=== PATIENT | female | born 1940 | race Caucasian/White ===

== ENCOUNTER 2017-04-10 07:50 | Day surgery (SDC) | payer MEDICARE, BC ==
--- NOTE | 2017-04-10 06:16 | PCM.HP ---
H&P History of Present Illness - General Date of Service: 04/10/17 Admit Problem/Dx: dysphagia, reflux, heartburn, nausea, lower abdominal pain, right throat pain, epigastric pain, upper abdominal pain, bloating, hx of constipation, possible post cholecystectomy diarrhea Source of Information: Patient History Limitations: Reports: No Limitations - History of Present Illness Initial Comments - Free Text/Narative: The patient is a 76-year-old female referred by Dr. Mosher for dysphagia. Patient is known to the clinic Dr. Briones previously completed colonoscopy and cholecystectomy with primary repair of umbilical hernia in 2012. The patient presents today for the above noted concern. Last evaluated 12/19/16 and 03/04/17. She denies any changes to health history since her 03/04 visit. She reports she still has the episodes of upper abdominal tightness, randomly. She will have the tightness accompanied by dizziness, feeling warm and generally feeling unwell. She last had this last week. She cannot identify a cause. She has not had the CT of abdomen as recommended. She is waiting on a pulmonology visit. She did stop eating gravy and butter and this has helped with diarrhea and indigestion. She took a car ride last week. Has some ankle swelling, no pain. Did stop frequently and did foot pumps on ride. She did not wear compression stockings. She still has trouble swallowing. No longer has the neck pain after PT. Constipation controlled with stool softener and Miralax. Previously reported she Has tightness to upper abdomen. Cardiology did not feel this was cardiac, per patient. Previously when she ate butter she will have the upper abdominal, it is a band like pain. Reports she will have diaphoresis with the pain at time. When she eats fatty foods can occur, or randomly occur. She has no gallbladder. - Related Data Allergies/Adverse Reactions: Allergies Allergy/AdvReac Type Severity Reaction Status Date / Time hydromorphone HCl Allergy Difficulty Verified 04/09/17 16:26 [From Dilaudid] Breathing NSAIDS (Non-Steroidal Allergy Nausea and Verified 04/09/17 16:26 Anti-Inflamma Vomiting Tetanus Vaccines and Toxoid Allergy Cannot Verified 04/09/17 16:26 [Tetanus Vaccines & Toxoid] Remember Home Medications: Home Meds Acetaminophen [Tylenol Extra Strength] 2 tab PO Q8H PRN 07/09/14 [History] Furosemide [Lasix] 60 mg PO DAILY 07/09/14 [History] Albuterol [Proair HFA] 2 puff INH TID 01/12/15 [History] Budesonide/Formoterol [Symbicort 160-4.5 MCG] 2 puff INH BID 04/09/17 [History] Diclofenac Sodium [Voltaren 1% Gel] 1 applic TOP BID PRN 04/09/17 [History] Docusate Sodium [Colace] 100 mg PO DAILY PRN 04/09/17 [History] Hydrocodone/Acetaminophen [[place] 10-325 Tablet] 1 tab PO Q6H PRN 04/09/17 [ History] Lisinopril [Lisinopril] 10 mg PO DAILY 04/09/17 [History] Omeprazole [Omeprazole] 20 mg PO DAILY 04/09/17 [History] Polyethylene Glycol 3350 [MiraLAX] 1 dose PO DAILY PRN 04/09/17 [History] Potassium Chloride 20 mg PO DAILY PRN 04/09/17 [History] Vit A/C/E AC/Znox/Cupric Oxide [Eye Vitamin-Minerals Tablet] 1 tab PO DAILY [History] amLODIPine Besylate [Norvasc] 2.5 mg PO DAILY 04/09/17 [History] atorvaSTATin [Lipitor] 40 mg PO DAILY 04/09/17 [History] predniSONE [Prednisone] 10 mg PO Q48H 04/09/17 [History] Past Medical History HEENT History: Reports: Impaired Vision, Other (See Below) Other HEENT History: wears glasses and dentures Cardiovascular History: Reports: CAD, Hypertension, Other (See Below) Other Cardiovascular History: heart cath, bradycardia Respiratory History: Reports: Asthma, COPD Other Respiratory History: lung nodules Gastrointestinal History: Reports: Chronic Constipation, Diverticulosis, GERD, Hiatal Hernia, Other (See Below) Other Gastrointestinal History: dysphagia, bloating, hiatal hernia Genitourinary History: Reports: Other (See Below) Other Genitourinary History: hematuria 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 (See Below) Other OB/BYN History: cystocele and rectocele repair Musculoskeletal History: Reports: Arthritis, Neck Pain, Chronic, Other (See Below) Other Musculoskeletal History: sciatica Neurological History: Reports: None Psychiatric History: Reports: Depression Endocrine/Metabolic History: Reports: Obesity/BMI 30+, Other (See Below) Other Endocrine/Metabolic History: Hyperglycemia Hematologic History: Reports: None Immunologic History: Reports: None Oncologic (Cancer) History: Reports: None Dermatologic History: Reports: Eczema - Past Surgical History HEENT Surgical History: Reports: Naso-Sinus Surgery GI Surgical History: Reports: Cholecystectomy, Colonoscopy, Hernia Repair/Other Female Surgical History: Reports: Hysterectomy Musculoskeletal Surgical History: Reports: Knee Replacement, Other (See Below) Other Musculoskeletal Surgeries/Procedures:: R total knee replacement, back fusion on C5-C6 Social & Family History - Tobacco Use Smoking Status *Q: Former Smoker Years of Tobacco use: 15 Used Tobacco, but Quit: Yes Month Tobacco Last Used: 1986 Second Hand Smoke Exposure: No - Caffeine Use Caffeine Use: Reports: Coffee, Soda - Alcohol Use Days Per Week of Alcohol Use: 3 Number of Drinks Per Day: 1 Total Drinks Per Week: 3 - Recreational Drug Use Recreational Drug Use: No H&P Review of Systems - Review of Systems: Review Of Systems: See Below Free Text/Narrative: Denies any exertional chest pain. Has exertional shortness of breath. Gets an upper abdominal tightness that makes her short of breath. No history of any easy bleeding or bruising. No personal or familial history of clotting or bleeding disorders. History of anesthetic complications, difficulty breathing after gallbladder surgery. Had trouble with breathing after gallbladder surgery , felt it was due to Dilaudid. No history of familial anesthetic complications. Denies presence of chest pain. History of chest pain six years ago. Was felt to be due to overeating. No longer has palpitations. Has lower extremity edema. NO : Dyspnea as rest. Has orthopnea. NO: Claudication. Hx Wheezing. NO: obstructive sleep apnea, study pending. NO: chronic cough. No URI in last two weeks. No history of blood thinner use. No history of anemia. No history of seizure or stroke. No chills, fever, or nightsweats. 12/18/16 patient saw PCP for shortness of breath, acute on chronic diastolic heart failure, bradycardia, poor sleep pattern, abdominal bloating, dizziness. After ED visit on 12/17 for "bronchitis.". Recent referral to cardiology and pulmonology for SOB, CAD on CT. Did see pulmonology in December. PFT 12/2016, normal spirometry, lung volumes showed mild air trapping, diffusion was normal. Pulmonology [place] sob could be due to underlying diastolic dysfunction or COPD. Sleep apnea possible. Subcentimeter lung nodules. Symbicort increased. Sleep study was then later negative. Pulmonology recommended F/u with cardiology and RTC in [address] Stewart in cardiology in January. Per Dr. Stewart's noted, "The patient's coronary angiogram was unremarkable. Her TTE only reviews grade 1 diastolic dysfunction (which is expected that the age of 77). She currently does not have physical exam findings of fluid overload and her symptoms do not appear cardiac in etiology" Statin was started. Medical therapy was continued. She is to return to cardiology in six months. Last echo 08/30/16: Conclusion: 1. Left ventricular ejection fraction is 65 to 70%. LV cavity size is normal. Systolic function is normal with no obvious regional wall motion abnormalities noted. 2. Impaired left ventricular relaxation with normal LV filling pressures-( Grade I Diastolic Dysfunction). 3. Mild to moderately dilated left atrium EKG 12/10/16: EKG Severity - NORMAL ECG - EKG Impression Sinus rhythm 12/20/16 Carotid duplex: Doppler evaluation of both internal carotid arteries with spectral waveform and Doppler color flow analysis demonstrates no evidence to suggest a hemodynamically significant stenosis. Vertebral artery flow is antegrade bilaterally. No significant plaque formation EKG 12/2016: EKG Severity - ABNORMAL ECG - EKG Impression Sinus rhythm Abnormal R-wave progression, late transition Inferior infarct, old Holter 2017: PERCENTAGE OF FIBRILLATION: 0%. HEART RATES: The patient's heart rates range between 43 beats per minute to 105 beats per minute with an average of 61 beats per minute. BRADYCARDIA: The patient had runs of bradycardia during nocturnal hours. Minimum rate was 43 beats per minute at 2:24 a.m. There were no pauses. VENTRICULAR EVENTS: The patient had 11 ventricular extrasystoles totalling 0.01 % of the total beats. There were no runs of ventricular tachycardia. There were no runs of bigeminy or couplets. SUPRAVENTRICULAR EVENTS: The patient had 144 supraventricular extrasystoles which represents 0.17% of the total beats. There were 3 runs of supraventricular tachycardia, the longest being 6 beats with a maximum rate of 123 beats per minute. In addition, there were 2 couplets. SYMPTOMS: The patient recorded 3 diary entries, a third of which, however, was after the end of the monitoring. The first diary entry of letting the dog out and feeling nauseated corresponded to sinus bradycardia with a heart rate of 47 beats per minute. The second diary entry for dizziness while doing paperwork corresponded to sinus bradycardia with a rate of 48 beats per minute. IMPRESSION 1. Bradycardia during nocturnal hours without pauses. 2. Symptoms corresponding to sinus bradycardia. CT on 12/06/2016 with coronary artery calcifications. 01/15/17 cath: 30% lesion mid RCA and 30% lesion distal RCA; consistent with mild disease. All other systems reviewed and were negative except as per history of present illness. General: Reports: No Symptoms. Denies: Fever, Chills HEENT: Reports: No Symptoms Pulmonary: Reports: No Symptoms. Denies: Shortness of Breath Cardiovascular: Reports: No Symptoms. Denies: Chest Pain, Palpitations Gastrointestinal: Reports: Other (see hpi) Genitourinary: Reports: No Symptoms Musculoskeletal: Reports: No Symptoms Skin: Reports: No Symptoms Psychiatric: Reports: No Symptoms Neurological: Reports: No Symptoms Hematologic/Lymphatic: Reports: No Symptoms Immunologic: Reports: No Symptoms Exam - Exam Exam: See Below - Vital Signs Weight: 106.594 kg - Exam General: Alert, Oriented HEENT: Conjunctiva Clear. No: Scleral Icterus Lungs: Clear to Auscultation, Normal Respiratory Effort Cardiovascular: Regular Rate, Regular Rhythm, Normal S1, Normal S2. No: Systolic Murmur, Diastolic Murmur Abdomen: Soft. No: Distention, Tenderness Back Exam: Normal Inspection Extremities: Normal Inspection, Normal Pulses, Edema (mild bilateral ankle edema ). No: Clubbing, Cyanosis, Calf Tenderness, Cool, Increased Warmth Skin: Warm, Dry, Intact Neuro Extensive - Mental Status: Alert, Oriented x3, Normal Mood/Affect, Normal Cognition, Memory Intact Psychiatric: Alert, Normal Affect, Normal Mood *Q Meaningful Use (ADM) - VTE *Q VTE Criteria *Q: - Stroke *Q Stroke Criteria *Q: - AMI *Q AMI Criteria *Q: - Problem List (1) Dysphagia SNOMED Code(s): 96582687, 593492784 ICD Code: R13.10 - DYSPHAGIA, UNSPECIFIED Status: Acute Current Visit: Yes Qualifiers: Dysphagia type: unspecified Qualified Code(s): R13.10 - Dysphagia, unspecified (2) Heartburn SNOMED Code(s): 59243211 ICD Code: R12 - HEARTBURN Status: Acute Current Visit: Yes (3) Nausea SNOMED Code(s): 955831735 ICD Code: R11.0 - NAUSEA Status: Acute Current Visit: Yes (4) Lower abdominal pain SNOMED Code(s): 94289467 ICD Code: R10.30 - LOWER ABDOMINAL PAIN, UNSPECIFIED Status: Acute Current Visit: Yes (5) Throat pain SNOMED Code(s): 511839592 ICD Code: R07.0 - PAIN IN THROAT Status: Acute Current Visit: Yes (6) Bloating SNOMED Code(s): 166221388 ICD Code: R14.0 - ABDOMINAL DISTENSION (GASEOUS) Status: Acute Current Visit: Yes (7) Constipation SNOMED Code(s): 02841687 ICD Code: K59.00 - CONSTIPATION, UNSPECIFIED Status: Acute Current Visit : Yes Qualifiers: Constipation type: unspecified constipation type Qualified Code(s): K59.00 - Constipation, unspecified (8) Epigastric pain SNOMED Code(s): 90539926 ICD Code: R10.13 - EPIGASTRIC PAIN Status: Acute Current Visit: Yes (9) Diarrhea SNOMED Code(s): 01987870 ICD Code: R19.7 - DIARRHEA, UNSPECIFIED Status: Acute Current Visit: Yes Qualifiers: Diarrhea type: unspecified type Qualified Code(s): R19.7 - Diarrhea, unspecified Problem List Initiated/Reviewed/Updated: Yes Orders Last 24hrs: Active Orders 24 hr Category Date Time Status Peripheral IV Care [RC] . DIRECTED Care 04/10/17 07:00 Active Verify Patient Consent Obtain [RC] ASDIRECTED Care 04/10/17 07:00 Active Lactated Ringers [Ringers, Lactated] 1,000 ml Med 04/10/17 07:00 Active IV ASDIRECTED Lidocaine 1%/Sod Bicarbonate [Buffered Lidocaine 1% in Med 04/10/17 07:00 Active NS 8.4%] 0.25 ml IV ONETIME PRN Sodium Chloride 0.9% [Saline Flush] Med 04/10/17 07:00 Active 10 ml FLUSH ASDIRECTED PRN Medication Administration Instruction [OM.PC] Routine Oth 04/10/17 07:00 Ordered Peripheral IV Insertion Adult [OM.PC] Routine Oth 04/10/17 07:00 Ordered Medication Orders Lactated Ringer's (Ringers, Lactated) 1,000 mls @ 125 mls/hr IV ASDIRECTED SHALONDA Lidocaine/Sodium Bicarbonate (Buffered Lidocaine 1% In Ns 8.4%) 0.25 ml IV ONETIME PRN PRN Reason: Prior to IV Start Sodium Chloride (Saline Flush) 10 ml FLUSH ASDIRECTED PRN PRN Reason: Keep Vein Open Assessment/Plan Comment:: 76yr female with dysphagia, reflux, heartburn, nausea, lower abdominal pain, right throat pain, epigastric pain, upper abdominal pain, bloating, hx of constipation, possible post cholecystectomy diarrhea, need for diagnostic EGD with possible balloon dilation and diagnostic colonoscopy PLAN: We discussed performing a diagnostic EGD, possible balloon dilation and diagnostic colonoscopy. We discussed the risks and benefits of the procedure including, pain, bleeding, infection, damage to surrounding structures, need for additional procedures and bowel perforation. This procedure will be completed at [facility] due to COPD, BMI 42.8. Patient has not had CT of abdomen/pelvis as recommended. Advised she has this after endoscopy. Also has had dizziness with the upper abdominal pain, denies prior work up for dizziness. No dizziness today. Recommended she see her PCP for further evaluation of this. She does have a follow up planned in the next two weeks. This patient was evaluated with Dr. Briones, plan formulated above. Nicol Crawford NP scribing for Dr. rIene Briones
[~2017-04-10 07:50] MED LIST: Lactated Ringers 1,000 ML IV SCH; Lidocaine 1% 4 ML ONE; Lidocaine 1%/Sod Bicarbonate in NS 8.4% 1 ML Syringe IV PRN; Propofol 200 MG/20 ML SDV ONE; Sodium Chloride 0.9% 10 ML Syringe FLUSH PRN; fentaNYL 100 MCG/2 ML SDV ONE
--- NOTE | 2017-04-10 08:20 | PCM.PREANE ---
Preanesthetic Assessment - Anesthesia/Transfusion/Family Hx Anesthesia History: Prior Anesthesia Without Reaction Family History of Anesthesia Reaction: No Transfusion History: No Prior Transfusion(s) - Review of Systems General: No Symptoms Pulmonary: No Symptoms Cardiovascular: Dyspnea on Exertion Gastrointestinal: No symptoms Neurological: Tingling (toe and hands) Other: Reports: None - Physical Assessment NPO Status Date: 04/09/17 NPO Status Time: 00:00 Pulse: 69 O2 Sat by Pulse Oximetry: 95 Respiratory Rate: 16 Blood Pressure: 152/72 Temperature: 37.6 C Height: 1.57 m Weight: 106.594 kg ASA Class: 3 Mental Status: Alert & Oriented x3 Airway Class: Mallampati = 2 Dentition: Reports: Dentures (upper and lower) Thyro-Mental Finger Breadths: 2 Mouth Opening Finger Breadths: 2 ROM/Head Extension: Limited/Partial (rods in back) Lungs: Clear to auscultation, Normal respiratory effort Cardiovascular: Regular Rate, Regular Rhythm, No Murmurs - Allergies Allergies/Adverse Reactions: Allergies Allergy/AdvReac Type Severity Reaction Status Date / Time hydromorphone HCl Allergy Difficulty Verified 04/09/17 16:26 [From Dilaudid] Breathing NSAIDS (Non-Steroidal Allergy Nausea and Verified 04/09/17 16:26 Anti-Inflamma Vomiting Tetanus Vaccines and Toxoid Allergy Cannot Verified 04/09/17 16:26 [Tetanus Vaccines & Toxoid] Remember - Anesthesia Plan Pre-Op Medication Ordered: None - Acknowledgements Anesthesia Type Planned: MAC Pt an Appropriate Candidate for the Planned Anesthesia: Yes Alternatives and Risks of Anesthesia Discussed w Pt/Guardian: Yes Pt/Guardian Understands and Agrees with Anesthesia Plan: Yes PreAnesthesia Questionnaire HEENT History: Reports: Impaired Vision, Other (See Below) Other HEENT History: wears glasses and dentures Cardiovascular History: Reports: CAD, Hypertension, Other (See Below) Other Cardiovascular History: heart cath, bradycardia Respiratory History: Reports: Asthma, COPD Other Respiratory History: lung nodules Gastrointestinal History: Reports: Chronic Constipation, Diverticulosis, GERD, Hiatal Hernia, Other (See Below) Other Gastrointestinal History: dysphagia, bloating, hiatal hernia Genitourinary History: Reports: Other (See Below) Other Genitourinary History: hematuria 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 (See Below) Other OB/BYN History: cystocele and rectocele repair Musculoskeletal History: Reports: Arthritis, Neck Pain, Chronic, Other (See Below) Other Musculoskeletal History: sciatica Neurological History: Reports: None Psychiatric History: Reports: Depression Endocrine/Metabolic History: Reports: Obesity/BMI 30+, Other (See Below) Other Endocrine/Metabolic History: Hyperglycemia Hematologic History: Reports: None Immunologic History: Reports: None Oncologic (Cancer) History: Reports: None Dermatologic History: Reports: Eczema - Past Surgical History HEENT Surgical History: Reports: Naso-Sinus Surgery GI Surgical History: Reports: Cholecystectomy, Colonoscopy, Hernia Repair/Other Female Surgical History: Reports: Hysterectomy Musculoskeletal Surgical History: Reports: Knee Replacement, Other (See Below) Other Musculoskeletal Surgeries/Procedures:: R total knee replacement, back fusion on C5-C6 - SUBSTANCE USE Smoking Status *Q: Former Smoker Tobacco Use Within Last Twelve Months: No Second Hand Smoke Exposure: No Days Per Week of Alcohol Use: 3 Number of Drinks Per Day: 1 Total Drinks Per Week: 3 Recreational Drug Use History: No - HOME MEDS Home Medications: Home Meds Acetaminophen [Tylenol Extra Strength] 2 tab PO Q8H PRN 07/09/14 [History] Furosemide [Lasix] 60 mg PO DAILY 07/09/14 [History] Albuterol [Proair HFA] 2 puff INH TID 01/12/15 [History] Budesonide/Formoterol [Symbicort 160-4.5 MCG] 2 puff INH BID 04/09/17 [History] Diclofenac Sodium [Voltaren 1% Gel] 1 applic TOP BID PRN 04/09/17 [History] Docusate Sodium [Colace] 100 mg PO DAILY PRN 04/09/17 [History] Hydrocodone/Acetaminophen [[place] 10-325 Tablet] 1 tab PO Q6H PRN 04/09/17 [ History] Lisinopril [Lisinopril] 10 mg PO DAILY 04/09/17 [History] Omeprazole [Omeprazole] 20 mg PO DAILY 04/09/17 [History] Polyethylene Glycol 3350 [MiraLAX] 1 dose PO DAILY PRN 04/09/17 [History] Potassium Chloride 20 mg PO DAILY PRN 04/09/17 [History] Vit A/C/E AC/Znox/Cupric Oxide [Eye Vitamin-Minerals Tablet] 1 tab PO DAILY [History] amLODIPine Besylate [Norvasc] 2.5 mg PO DAILY 04/09/17 [History] atorvaSTATin [Lipitor] 40 mg PO DAILY 04/09/17 [History] predniSONE [Prednisone] 10 mg PO Q48H 04/09/17 [History] - CURRENT (IN HOUSE) MEDS Current Meds: Current Medications Lactated Ringer's (Ringers, Lactated) 1,000 mls @ 125 mls/hr IV ASDIRECTED SHALONDA Lidocaine/Sodium Bicarbonate (Buffered Lidocaine 1% In Ns 8.4%) 0.25 ml IV ONETIME PRN PRN Reason: Prior to IV Start Sodium Chloride (Saline Flush) 10 ml FLUSH ASDIRECTED PRN PRN Reason: Keep Vein Open Discontinued Medications Fentanyl (Sublimaze) Confirm Administered Dose 100 mcg .ROUTE .STK-MED ONE Stop: 04/10/17 07:40 Lidocaine HCl (Xylocaine-Mpf 1%) Confirm Administered Dose 4 mls @ as directed .ROUTE .STK-MED ONE Stop: 04/10/17 07:40 Propofol (Diprivan 20 Ml) Confirm Administered Dose 200 mg .ROUTE .STK-MED ONE Stop: 04/10/17 07:40
[2017-04-10] MEDS ORDERED: Midazolam 1 MG/ML 2 ML SDV ONE (09:28)
[2017-04-10] MEDS ORDERED: Propofol 200 MG/20 ML SDV ONE (09:53)
--- NOTE | 2017-04-10 10:09 | PCM48HPAN ---
Post Anesthesia Note - EVALUATION WITHIN 48HRS OF ANESTHETIC Vital Signs in Normal Range: Yes Patient Participated in Evaluation: Yes Respiratory Function Stable: Yes Airway Patent: Yes Cardiovascular Function Stable: Yes Hydration Status Stable: Yes Pain Control Satisfactory: Yes Nausea and Vomiting Control Satisfactory: Yes Mental Status Recovered: Yes
[2017-04-10 10:31] VITALS: BP 143/86
--- NOTE | 2017-04-10 10:37 | PCM.OPNOTE ---
- General Post-Op/Procedure Note Date of Surgery/Procedure: 04/10/17 Operative Procedure(s): Diagnostic EGD with cold forceps biopsy, diagnostic colonoscopy with cold forceps polypectomy Pre Op Diagnosis: Dysphagia, chronic abdominal pain, chronic diarrhea and constipation Post-Op Diagnosis: Gastritis, esophagitis, gastric polyps, diverticulosis, colon polyps [place]est[place] [facility] [place]geon: Irene Briones Anesthesia Provider: Ed Kendrick Pathology: 1. Small bowel biopsy 2. Antral biopsy 3. Distal esophageal biopsy 4. Ascending colon polyp 5. Transverse colon polyp 6. Sigmoid colon polyp 7. Rectal polyps (2) Fluid Replacement, Intraop: 600 (mL crystalloid) EBL in mLs: 1 Complications: None Condition: Good Free Text/Narrative:: INDICATION FOR PROCEDURE: The patient is a 60-year-old woman who was referred to me by Dr. Brittany Mosher for evaluation for dysphagia, reflux, heartburn, nausea, lower abdominal pain, "throat pain," epigastric pain, bloating, constipation and intermittent diarrhea. Performing a colonoscopy and EGD and the associated risks of the procedures had been discussed with the patient. The patient found these risks acceptable and agreed to proceed. DESCRIPTION OF PROCEDURE: The patient was taken to the operating room and placed in the left lateral decubitus position. After induction of adequate sedation, a bite block was placed. A standard Olympus gastroscope was inserted into the oropharynx and guided down the esophagus without difficulty. The gastroesophageal junction was appreciated at 39 cm from the teeth. There was no evidence of stricture or esophageal ulcerations. The scope was advanced into the stomach, and there was mild gastritis with areas of punctate hemorrhage. The scope was passed into the proximal jejunum and the duodenum which were unremarkable. There were no petechiae or ulcerations. The proximal jejunum was grossly normal in appearance. Multiple cold forceps biopsies were obtained of the proximal jejunum and duodenum. The scope was withdrawn into the antrum, and additional cold forceps biopsies were obtained. The remainder of the gastric body was examined, and there were 2 or 3 diminutive gastric polyps. The scope was retroflexed, and there was no evidence of hiatal hernia. The scope was straightened and withdrawn to the GE junction. There was mild esophagitis. Additional cold forceps biopsies were obtained of the distal esophagus. The scope was withdrawn through the remainder of the esophagus and no further abnormalities were noted. The posterior oropharynx was grossly normal in appearance. The scope was fully withdrawn and attention was then turned to the colonoscopy. A digital rectal exam was performed which was unremarkable. An Olympus colonoscope was inserted into the rectum and guided under direct visualization to the appendiceal orifice and ileocecal valve. The scope was then slowly withdrawn through the colon. The quality of the prep was good. There was no evidence of angiodysplasias. Moderate diverticulosis was present throughout the sigmoid colon. Multiple small sessile polyps were noted. A polyp in the ascending colon was removed using cold forceps, a transverse colon polyp was removed using cold forceps, a sigmoid colon polyp was removed using cold forceps , and 2 rectal polyps removed using cold forceps. All polyps were small and sessile. The scope was withdrawn into the rectum and retroflexed. There was no significant prominence of the patient's internal hemorrhoids. The scope was straightened, the colon was desufflated,and the scope was withdrawn. The patient was awakened from sedation and transferred to the recovery room in stable condition having tolerated the procedure well. POSTOPERATIVE PLAN: I discussed with the patient and her family my intraoperative findings and recommendations. The patient will follow up in approximately 2 weeks to discuss pathology and how their symptoms are progressing. She is instructed to complete the CT of the abdomen and pelvis that was previously ordered. She has been instructed to follow a high-fiber, GERD/gastritis diet. The patient is to call with any worsening of symptoms or questions prior to the appointment.
== END 2017-04-10 10:54 | disposition home or self-care (01) ==
LOC: JD.SDS 07:50
PROVIDERS: ATTEND Surgery
PROC: 0DB98ZX Excision of Duodenum, Via Natural or Artificial Opening Endoscopic, Diagnostic (ICD-10-PCS; principal; 2017-04-10)
PROC: 0DB68ZX Excision of Stomach, Via Natural or Artificial Opening Endoscopic, Diagnostic (ICD-10-PCS; 2017-04-10)
PROC: 0DBA8ZX Excision of Jejunum, Via Natural or Artificial Opening Endoscopic, Diagnostic (ICD-10-PCS; 2017-04-10)
PROC: 0DB38ZX Excision of Lower Esophagus, Via Natural or Artificial Opening Endoscopic, Diagnostic (ICD-10-PCS; 2017-04-10)
PROC: 0DBK8ZZ Excision of Ascending Colon, Via Natural or Artificial Opening Endoscopic (ICD-10-PCS; 2017-04-10)
PROC: 0DBP8ZZ Excision of Rectum, Via Natural or Artificial Opening Endoscopic (ICD-10-PCS; 2017-04-10)
PROC: 0DBN8ZZ Excision of Sigmoid Colon, Via Natural or Artificial Opening Endoscopic (ICD-10-PCS; 2017-04-10)
PROC: 0DBL8ZZ Excision of Transverse Colon, Via Natural or Artificial Opening Endoscopic (ICD-10-PCS; 2017-04-10)
DX: K31.7 Polyp of stomach and duodenum (principal); K63.5 Polyp of colon; K62.1 Rectal polyp; K29.71 Gastritis, unspecified, with bleeding; K57.30 Diverticulosis of large intestine without perforation or abscess without bleeding; K64.8 Other hemorrhoids; I25.10 Atherosclerotic heart disease of native coronary artery without angina pectoris; I10 Essential (primary) hypertension; J44.9 Chronic obstructive pulmonary disease, unspecified; K59.09 Other constipation; K21.9 Gastro-esophageal reflux disease without esophagitis; M19.90 Unspecified osteoarthritis, unspecified site; M54.2 Cervicalgia; G89.29 Other chronic pain; F32.9 Major depressive disorder, single episode, unspecified; E66.9 Obesity, unspecified; Z87.891 Personal history of nicotine dependence; Z88.5 Allergy status to narcotic agent; Z88.6 Allergy status to analgesic agent; Z88.7 Allergy status to serum and vaccine; Z79.51 Long term (current) use of inhaled steroids; Z79.52 Long term (current) use of systemic steroids; Z79.899 Other long term (current) drug therapy; Z96.651 Presence of right artificial knee joint; Z98.1 Arthrodesis status; Z90.49 Acquired absence of other specified parts of digestive tract; Z98.890 Other specified postprocedural states
CPT/HCPCS: 43239; 45380; J2250; J3010; J7120; 00810; 88305; J2704

== ENCOUNTER 2017-04-26 14:00 | Emergency (ER) | payer MEDICARE, BC ==
[2017-04-26] MEDS ORDERED: Sodium Chloride 0.9% 10 ML Syringe FLUSH PRN (14:29)
[2017-04-26] MEDS ORDERED: Albuterol/Ipratropium 3.0-0.5 MG/3 ML Neb Soln NEB ONE (14:29)
[2017-04-26] MEDS ORDERED: Albuterol/Ipratropium 3.0-0.5 MG/3 ML Neb Soln ONE (14:42)
--- NOTE | 2017-04-26 14:50 | EDM.PDOC ---
ED HPI GENERAL MEDICAL PROBLEM - General Chief Complaint: Chest Pain Stated Complaint: Shortness of breath Time Seen by Provider: 04/26/17 14:15 Source of Information: Reports: Patient, RN Notes Reviewed History Limitations: Reports: No Limitations - History of Present Illness INITIAL COMMENTS - FREE TEXT/NARRATIVE: 77 year old female presents to the ED today with complaints of 6 day history of shortness of breath that is worse with exertion. She can only walk 3-4 steps before getting very short of breath. She denies associated chest pain, neck or arm discomfort, diaphoresis, or vomiting. She has increasing bilateral lower extremity edema over the past few weeks. She had some nausea earlier today. She reports some upper abdominal tightness and bloating. No fever, chills, pleuritic chest pain, cough, vomiting, diarrhea. She struggles with constipation but controls it with OTC medications. Last BM was yesterday. She is a former smoker, quit in 1986. Denies family history of heart disease. Pertinent medical history: Records obtained from [place]. She has a history of COPD. She saw her Timber Setter yesterday. She had a chest CT without contrast yesterday. Results : stable lung nodules. Three vessel coronary artery disease. Slight scarring in the lung bases. No lymphadenopathy. Her cutter out Dr. Santos recommended continuing Symbicort and albuterol; weight loss; follow-up in 1 year. No changes were made. She denies history of CT. She had a heart cath 3 months ago and reports "3% blockage." Otherwise denies cardiac history. She is established with Dr. Briones. She has a known hiatal hernia. She had an EGD and colonoscopy performed on 04/10/17. She saw Eloisa Crawford NP with Dr. Briones, today in the clinic for complaints of epigastric/upper abdominal tightness. CT scan was performed with IV contrast. Findings: the intra and extrahepatic bile ducts are mildly dilated which can be normal in the postcholecystectomy state. If patient's LFTs are abnormal, consider MRCP. Otherwise diffuse colon diverticulosis without diverticulitis. Solid organs normal. Her cholecystectomy was approximately 1.5 years ago according to the patient. Middle Chest Pain Score (Numeric/FACES): 10 - Related Data Allergies Allergy/AdvReac Type Severity Reaction Status Date / Time hydromorphone HCl Allergy Difficulty Verified 04/26/17 14:10 [From Dilaudid] Breathing NSAIDS (Non-Steroidal Allergy Nausea and Verified 04/26/17 14:10 Anti-Inflamma Vomiting Tetanus Vaccines and Toxoid Allergy Cannot Verified 04/26/17 14:10 [Tetanus Vaccines & Toxoid] Remember Home Meds: Home Meds Furosemide [Lasix] 60 mg PO DAILY 07/09/14 [History] Albuterol [Proair HFA] 2 puff INH TID 01/12/15 [History] Budesonide/Formoterol [Symbicort 160-4.5 MCG] 2 puff INH BID 04/09/17 [History] Diclofenac Sodium [Voltaren 1% Gel] 2 - 4 gm TOP TID PRN 04/09/17 [History] Docusate Sodium [Colace] 200 mg PO BEDTIME 04/09/17 [History] Hydrocodone/Acetaminophen [[place] 10-325 Tablet] 1 tab PO Q6H PRN 04/09/17 [ History] Lisinopril 10 mg PO DAILY 04/09/17 [History] Omeprazole 20 mg PO DAILY 04/09/17 [History] Polyethylene Glycol 3350 [MiraLAX] 1 dose PO DAILY PRN 04/09/17 [History] Potassium Chloride 20 mg PO DAILY PRN 04/09/17 [History] Vit A/C/E AC/Znox/Cupric Oxide [Eye Vitamin-Minerals Tablet] 1 tab PO DAILY [History] atorvaSTATin [Lipitor] 40 mg PO DAILY 04/09/17 [History] predniSONE [Prednisone] 10 mg PO Q48H 04/09/17 [History] Acetaminophen [Tylenol Arthritis] 650 mg PO Q6H PRN 04/26/17 [History] Aspirin [Lo-Dose Aspirin EC] 81 mg PO DAILY 04/26/17 [History] LORazepam [Ativan] 0.5 mg PO ASDIRECTED PRN 04/26/17 [History] Past Medical History HEENT History: Reports: Impaired Vision, Other (See Below) Other HEENT History: wears glasses and dentures Cardiovascular History: Reports: CAD, Hypertension, Other (See Below) Other Cardiovascular History: heart cath, bradycardia Respiratory History: Reports: Asthma, COPD Other Respiratory History: lung nodules Gastrointestinal History: Reports: Chronic Constipation, Diverticulosis, GERD, Hiatal Hernia, Other (See Below) Other Gastrointestinal History: dysphagia, bloating, hiatal hernia Genitourinary History: Reports: Other (See Below) Other Genitourinary History: hematuria 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 (See Below) Other OB/BYN History: cystocele and rectocele repair Musculoskeletal History: Reports: Arthritis, Neck Pain, Chronic, Other (See Below) Other Musculoskeletal History: sciatica Neurological History: Reports: None Psychiatric History: Reports: Depression Endocrine/Metabolic History: Reports: Obesity/BMI 30+, Other (See Below) Other Endocrine/Metabolic History: Hyperglycemia Hematologic History: Reports: None Immunologic History: Reports: None Oncologic (Cancer) History: Reports: None Dermatologic History: Reports: Eczema - Past Surgical History HEENT Surgical History: Reports: Naso-Sinus Surgery GI Surgical History: Reports: Cholecystectomy, Colonoscopy, Hernia Repair/Other Female Surgical History: Reports: Hysterectomy Musculoskeletal Surgical History: Reports: Knee Replacement, Other (See Below) Other Musculoskeletal Surgeries/Procedures:: R total knee replacement, back fusion on C5-C6 Social & Family History - Tobacco Use Smoking Status *Q: Former Smoker Years of Tobacco use: 15 Used Tobacco, but Quit: Yes Month Tobacco Last Used: 1986 Second Hand Smoke Exposure: No - Caffeine Use Caffeine Use: Reports: Coffee, Soda - Alcohol Use Days Per Week of Alcohol Use: 3 Number of Drinks Per Day: 1 Total Drinks Per Week: 3 - Recreational Drug Use Recreational Drug Use: No ED ROS GENERAL - Review of Systems Review Of Systems: See Below Constitutional: Reports: No Symptoms. Denies: Fever, Chills, Diaphoresis Respiratory: Reports: Shortness of Breath. Denies: Pleuritic Chest Pain, Cough , Sputum Cardiovascular: Reports: Dyspnea on Exertion, Edema. Denies: Chest Pain GI/Abdominal: Reports: Abdominal Pain, Nausea. Denies: Constipation, Diarrhea, Vomiting ED EXAM, GENERAL - Physical Exam Exam: See Below Exam Limited By: No Limitations General Appearance: Alert, Anxious, Mild Distress, Obese Respiratory/Chest: Lungs Clear, Decreased Breath Sounds, Other (appears mildly short of breath at rest, oxygen saturation 97% on room air. mild tachypnea). No : Crackles, Rales, Rhonchi, Wheezing Cardiovascular: Regular Rate, Rhythm, No Murmur, Other (2-3+ pitting edema to bilateral lower extremities. ) GI/Abdominal: Soft, Non-Tender, Distended (mildly ), Other (hyperactive bowel sounds ) Extremities: Other (lower extremity edema, bilateral). No: Increased Warmth, Redness Psychiatric: Anxious EKG INTERPRETATION EKG Date: 04/26/17 Time: 14:41 Rhythm: NSR Rate (Beats/Min): 61 [place]: Normal P-Wave: Present QRS: Normal ST-T: Normal QT: Normal Comparison: No Change EKG Interpretation Comments: EKG read by Dr. Culp. SR 61 bpm. Q waves in III and AVF. No acute ischemic changes. Course - Vital Signs Last Recorded V/S: Last Vital Signs Temp 97.8 F 04/26/17 14:04 Pulse 78 04/26/17 16:14 Resp 18 04/26/17 16:14 BP 110/60 04/26/17 16:14 Pulse Ox 99 04/26/17 16:14 - Orders/Labs/Meds Orders: Active Orders 24 hr Category Date Time Status Cardiac Monitoring [RC] . DIRECTED Care 04/26/17 14:30 Active EKG 12 Lead [EKG Documentation Completion] [RC] STAT Care 04/26/17 14:28 Active Peripheral IV Care [RC] . DIRECTED Care 04/26/17 14:29 Active RT Aerosol Therapy [RC] ASDIRECTED Care 04/26/17 14:29 Active Peripheral IV Insertion Adult [OM.PC] Stat Oth 04/26/17 14:28 Ordered Labs: Laboratory Tests 04/26/17 04/26/17 04/26/17 Range/Units 14:35 14:35 14:35 WBC 6.32 (3.98-10.04) K/mm3 RBC 4.27 (3.98-5.22) M/mm3 Hgb 12.9 (11.2-15.7) gm/L Hct 39.9 (34.1-44.9) % MCV 93.4 (79.4-94.8) fl MCH 30.2 (25.6-32.2) pg MCHC 32.3 (32.2-35.5) g/dl RDW Std Deviation 45.6 (36.4-46.3) fL Plt Count 214 (182-369) K/mm3 MPV 10.2 (9.4-12.3) fl Neut % (Auto) 66.0 (34.0-71.1) % Lymph % (Auto) 21.4 (19.3-51.7) % [place] % (Auto) 8.4 (4.7-12.5) % Eos % (Auto) 3.6 (0.7-5.8) Baso % (Auto) 0.3 (0.1-1.2) % Neut # (Auto) 4.17 (1.56-6.13) K/mm3 Lymph # (Auto) 1.35 (1.18-3.74) K/mm3 [place] # (Auto) 0.53 H (0.24-0.36) K/mm3 Eos # (Auto) 0.23 (0.04-0.36) K/mm3 Baso # (Auto) 0.02 (0.01-0.08) K/mm3 Sodium 143 (136-145) mEq/L Potassium 3.5 (3.5-5.1) mEq/L Chloride 108 H (98-107) mEq/L Carbon Dioxide 27 (21-32) mEq/L Anion Gap 11.5 (5-15) BUN 15 (7-18) mg/dL Creatinine 0.9 (0.55-1.02) mg/dL Est Cr Clr Drug Dosing 42.72 mL/min Estimated GFR (MDRD) > 60 (>60) mL/min BUN/Creatinine Ratio 16.7 (14-18) Glucose 106 (83-115) mg/dL Calcium 8.8 (8.5-10.1) mg/dL Total Bilirubin 0.4 (0.2-1.0) mg/dL AST 21 (15-37) U/L ALT 33 (14-59) U/L Alkaline Phosphatase 78 (46-116) U/L Troponin I < 0.017 (0.00-0.056) ng/mL B-Natriuretic Peptide 68 (0-100) pg/mL Total Protein 6.6 (6.4-8.2) g/dl Albumin 3.4 (3.4-5.0) g/dl Globulin 3.2 gm/dL Albumin/Globulin Ratio 1.1 (1-2) Meds: Medications Discontinued Medications Generic Name Dose Route Start Last Admin Trade Name Freq PRN Reason Stop Dose Admin Albuterol/Ipratropium 3 ml 04/26/17 14:29 04/26/17 14:42 Duoneb 3.0-0.5 Mg/3 Ml NEB 04/26/17 14:30 3 ml ONETIME ONE Administration Albuterol/Ipratropium Confirm 04/26/17 14:42 Duoneb 3.0-0.5 Mg/3 Ml Administered 04/26/17 14:43 Dose 3 ml .ROUTE .STK-MED ONE Sodium Chloride 10 ml 04/26/17 14:29 04/26/17 14:38 Saline Flush FLUSH 10 ml ASDIRECTED PRN Administration Keep Vein Open - Re-Assessments/Exams Free Text/Narrative Re-Assessment/Exam: CBC, CMP, troponin and BNP are all WNL. Chest x-ray read by Dr. Stevens, impression: 1. Cardiomegaly. Other incidental findings 2. Nothing acute identified Vital signs are stable. Oxygen saturation is well above 90% on room air. Patient had improvement with Duoneb. She is on prednisone chronically. She was taking 10mg daily but this was decreased to every other day about 1 month ago. The patient feels her dyspnea symptoms have worsened since decreasing the dose. The patient had a large bowel movement while in the ED. This completely resolved her epigastric and upper abdominal pressure and bloating. She appears much more comfortable. She was educated on return precautions. She was scheduled an appointment with her PCP for next week. We discussed increasing her prednisone dose. However, we will leave this up to her PCP in follow-up. Departure - Departure Time of Disposition: 15:54 Disposition: Home, Self-Care 01 Condition: Good Clinical Impression: Shortness of breath COPD (chronic obstructive pulmonary disease) Qualifiers: COPD type: unspecified COPD Qualified Code(s): J44.9 - Chronic obstructive pulmonary disease, unspecified - Discharge Information Instructions: Shortness of Breath, [id number] Referrals: Brittany Mosher MD [Primary Care Provider] - Forms: ED Department Discharge Additional Instructions: Follow-up with Dr. Mosher on Saturday05/03/17 at 9am. Call [phone] to reschedule if needed Return to ER with any new or worsening symptoms Continue your current mediations as prescribed. - My Orders Last 24 Hours: My Active Orders 04/26/17 14:28 EKG 12 Lead [EKG Documentation Completion] [RC] STAT Peripheral IV Insertion Adult [OM.PC] Stat 04/26/17 14:29 Peripheral IV Care [RC] . DIRECTED RT Aerosol Therapy [RC] ASDIRECTED 04/26/17 14:30 Cardiac Monitoring [RC] . DIRECTED - Assessment/Plan Last 24 Hours: My Active Orders 04/26/17 14:28 EKG 12 Lead [EKG Documentation Completion] [RC] STAT Peripheral IV Insertion Adult [OM.PC] Stat 04/26/17 14:29 Peripheral IV Care [RC] . DIRECTED RT Aerosol Therapy [RC] ASDIRECTED 04/26/17 14:30 Cardiac Monitoring [RC] . DIRECTED
--- NOTE | 2017-04-26 15:17 | CR ---
Chest: Portable view of the chest was obtained. Comparison: Previous chest x-ray of 12/17/16. Heart is enlarged. Lungs are clear. No acute pulmonary vascular congestion is seen. Degenerative spurring is noted within the spine. Previous cervical spine surgery is noted. Impression: 1. Cardiomegaly. Other incidental findings. 2. Nothing acute is identified. Diagnostic code #2
[2017-04-26 16:15] VITALS: BP 110/60
== END 2017-04-26 16:00 | disposition home or self-care (01) ==
LOC: JD.ED 14:00
DX: J44.9 Chronic obstructive pulmonary disease, unspecified (principal); J45.909 Unspecified asthma, uncomplicated; I10 Essential (primary) hypertension; I25.10 Atherosclerotic heart disease of native coronary artery without angina pectoris; K21.9 Gastro-esophageal reflux disease without esophagitis; F32.9 Major depressive disorder, single episode, unspecified; E66.9 Obesity, unspecified; Z98.890 Other specified postprocedural states; Z96.659 Presence of unspecified artificial knee joint; Z87.890 Personal history of sex reassignment; Z79.899 Other long term (current) drug therapy; Z79.82 Long term (current) use of aspirin; Z88.1 Allergy status to other antibiotic agents
CPT/HCPCS: 36415; 71010; 80053; 83880; 84484; 85025; 93005; 94664; 99285; J7050; 99284

== ENCOUNTER 2019-01-25 08:10 | Emergency (ER) | payer MEDICARE, BC ==
[2019-01-25 08:25] VITALS: BP 143/88
--- NOTE | 2019-01-25 08:55 | EDM.PDOC ---
ED HPI GENERAL MEDICAL PROBLEM - General Chief Complaint: Back Pain or Injury Stated Complaint: BACK PAIN Time Seen by Provider: 01/25/19 08:45 Source of Information: Reports: Patient History Limitations: Reports: No Limitations - History of Present Illness INITIAL COMMENTS - FREE TEXT/NARRATIVE: 79-year-old female attends the ED with an acute exacerbation of chronic low back pain. Patient has chronic left low back pain which radiates around to the left lateral hip area. She's had previous CT scans of her lumbar spine performed in the past. 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 He been struggling with low back pain for over a year and a half. She is scheduled for dry needle therapy through physiotherapy on Saturday. Tomorrow. He has no radiculopathy. She has no loss of control over bowel or bladder function. States pain is worse the last few days and not able to sleep because of it. She has Tonalea tablets at home which was not finding them very effectual. Does not use Gatorade at home. She reports she does have a muscle relaxant at home not sure of its Flexeril or nor flex. Onset: Gradual Onset Date: 01/23/19 (Increased low back pain the last 48 hours. Associated intermittent muscle spasms.) Duration: Chronic Location: Reports: Back (Chronic problem with acute exacerbation of back pain.) Quality: Reports: Ache, Throbbing Severity: Moderate (8 out of 10) Improves with: Reports: Rest Worsens with: Reports: Movement Associated Symptoms: Reports: No Other Symptoms Treatments SENIOR RISK ANALYST: Reports: Other (see below) Other Treatments SENIOR RISK ANALYST: hydrocodone Lower Back Pain Score (Numeric/FACES): 10 - Related Data Allergies Allergy/AdvReac Type Severity Reaction Status Date / Time hydromorphone HCl Allergy Difficulty Verified 01/25/19 08:25 [From Dilaudid] Breathing NSAIDS (Non-Steroidal Allergy Nausea and Verified 01/25/19 08:25 Anti-Inflamma Vomiting Tetanus Vaccines and Toxoid Allergy Cannot Verified 01/25/19 08:25 [Tetanus Vaccines & Toxoid] Remember Home Meds: Home Meds Furosemide [Lasix] 60 mg PO DAILY 07/09/14 [History] Albuterol [Proair HFA] 2 puff INH TID 01/12/15 [History] Budesonide/Formoterol [Symbicort 160-4.5 MCG] 2 puff INH BID 04/09/17 [History] Diclofenac Sodium [Voltaren 1% Gel] 2 - 4 gm TOP TID PRN 04/09/17 [History] Docusate Sodium [Colace] 200 mg PO BEDTIME 04/09/17 [History] Lisinopril 10 mg PO DAILY 04/09/17 [History] Omeprazole 20 mg PO DAILY 04/09/17 [History] Polyethylene Glycol 3350 [MiraLAX] 1 dose PO DAILY PRN 04/09/17 [History] Potassium Chloride 20 mg PO DAILY PRN 04/09/17 [History] Vit A/C/E AC/Znox/Cupric Oxide [Eye Vitamin-Minerals Tablet] 1 tab PO DAILY [History] atorvaSTATin [Lipitor] 40 mg PO DAILY 04/09/17 [History] predniSONE [Prednisone] 10 mg PO Q48H 04/09/17 [History] Acetaminophen [Tylenol Arthritis] 650 mg PO Q6H PRN 04/26/17 [History] Aspirin [Lo-Dose Aspirin EC] 81 mg PO DAILY 04/26/17 [History] LORazepam [Ativan] 0.5 mg PO ASDIRECTED PRN 04/26/17 [History] oxyCODONE HCl/Acetaminophen [Percocet 5-325 mg Tablet] 1 - 2 each PO Q4H PRN # 20 tablet 01/25/19 [Rx] predniSONE [Deltasone] 20 mg PO ASDIRECTED #15 tablet 01/25/19 [Rx] Past Medical History HEENT History: Reports: Impaired Vision, Other (See Below) Other HEENT History: wears glasses and dentures Cardiovascular History: Reports: CAD, Hypertension, Other (See Below) Other Cardiovascular History: heart cath, bradycardia Respiratory History: Reports: Asthma, COPD Other Respiratory History: lung nodules Gastrointestinal History: Reports: Chronic Constipation, Diverticulosis, GERD, Hiatal Hernia, Other (See Below) Other Gastrointestinal History: dysphagia, bloating, hiatal hernia Genitourinary History: Reports: Other (See Below) Other Genitourinary History: hematuria QUALITY AUDITOR History: Reports: Other (See Below) Other QUALITY AUDITOR History: cystocele and rectocele repair Musculoskeletal History: Reports: Arthritis, Neck Pain, Chronic, Other (See Below) Other Musculoskeletal History: sciatica Neurological History: Reports: None Psychiatric History: Reports: Depression Endocrine/Metabolic History: Reports: Obesity/BMI 30+, Other (See Below) Other Endocrine/Metabolic History: Hyperglycemia Hematologic History: Reports: None Immunologic History: Reports: None Oncologic (Cancer) History: Reports: None Dermatologic History: Reports: Eczema - Past Surgical History HEENT Surgical History: Reports: Naso-Sinus Surgery GI Surgical History: Reports: Cholecystectomy, Colonoscopy, Hernia Repair/Other Female Surgical History: Reports: Hysterectomy Musculoskeletal Surgical History: Reports: Knee Replacement, Other (See Below) Other Musculoskeletal Surgeries/Procedures:: R total knee replacement, back fusion on C5-C6 Social & Family History - Tobacco Use Smoking Status *Q: Former Smoker Used Tobacco, but Quit: Yes Month/Year Tobacco Last Used: - Caffeine Use Caffeine Use: Reports: Coffee - Recreational Drug Use Recreational Drug Use: No - Living Situation & Occupation Living situation: Reports: Occupation: Employed ED ROS GENERAL - Review of Systems Review Of Systems: See Below Constitutional: Reports: Malaise, Weakness, Fatigue, Decreased Appetite. Denies : Fever, Chills HEENT: Reports: Glasses Respiratory: Reports: No Symptoms Cardiovascular: Reports: No Symptoms, Blood Pressure Problem, Other Endocrine: Reports: No Symptoms GI/Abdominal: Reports: Constipation : Reports: Frequency (From pain medications), Incontinence Musculoskeletal: Reports: Neck Pain, Shoulder Pain (Knee hip and neck pain chronically), Back Pain (Urge and stress components), Joint Pain Skin: Reports: No Symptoms ( Xenia shoulder pain) Neurological: Reports: No Symptoms Psychiatric: Reports: No Symptoms ED EXAM,LOWER BACK PAIN/INJURY - Physical Exam Exam: See Below Exam Limited By: No Limitations General Appearance: Alert, WD/WN, Mild Distress, Other (Mobility is certainly decreased from the norm.) Eye Exam: Bilateral Eye: Normal Inspection Throat/Mouth: Normal Inspection, Normal Lips, Normal Teeth, Normal Oropharynx Neck: Limited Range of Motion (Neck is fused and she tends to look towards the floor she has difficulty looking upwards at all.), Other Respiratory/Chest: No Respiratory Distress, Lungs Clear, Normal Breath Sounds, Chest Non-Tender Cardiovascular: Regular Rate, Rhythm, No Edema, No Gallop, No Murmur, No Rub GI/Abdominal: Soft, Non-Tender, No Organomegaly, Pelvis Stable, Rebound, Abnormal Bowel Sounds Back Exam: Decreased Range of Motion, Other (Minimal muscle spasm appreciated on palpation of the back. Pain is localized primarily L4-L5 and L5-S1 facet joints on the right side. There is also marked pain throughout the right sacroiliac joint probably from the way she walks i.e. antalgic gait). No: Full Range of Motion, CVA Tenderness (L), CVA Tenderness (R) Extremities: Normal Inspection, Other (Arthritic changes both knees and hips.) Neurological: Alert, Normal Mood/Affect, Normal Dorsiflexion DTR - Lower Extremities: 0: Ankle (R), Ankle (L), 1+: Knee (R), Knee (L) Psychiatric: Normal Mood Skin Exam: Warm, Dry, Intact, Normal Color, No Rash Course - Vital Signs Last Recorded V/S: Last Vital Signs Temp 36.6 C 01/25/19 08:22 Pulse 65 01/25/19 08:22 Resp 16 01/25/19 08:22 BP 143/88 H 01/25/19 08:22 Pulse Ox 96 01/25/19 08:22 - Orders/Labs/Meds Orders: Active Orders 24 hr Category Date Time Status Meperidine [Demerol] Med 01/25/19 09:06 Once 50 mg IM ONETIME ONE Meds: Medications Discontinued Medications Generic Name Dose Route Start Last Admin Trade Name Mireille PRN Reason Stop Dose Admin Hydromorphone HCl 1 mg 01/25/19 08:56 Dilaudid IM 01/25/19 08:57 ONETIME ONE Promethazine HCl 12.5 mg 01/25/19 08:56 Phenergan IM 01/25/19 08:57 ONETIME ONE - Radiology Interpretation Free Text/Narrative:: 79-year-old female with chronic back pain returns to the ED with exacerbation of low back pain particularly right side. Radiculopathy in her lower extremity. There is pain over L4-L5 and L5-S1 facet joints and a well-healed midline lumbar scar but she doesn't know what was done with the surgery. She believes there is hardware in place. She has pain throughout the right sacroiliac joint on exam. She is basically here for pain management. Tonalea 5/325 mg tablets are not helping at home. Plan we'll give her an IM injection of Demerol 50 mg with Phenergan 12.5 mg IM for pain and muscle spasm relief. We'll discharge her on Percocet tabs 5/3/25 milligrams one or 2 every 4-6 hours for pain relief in place of Tonalea. He is already using a Voltaren patch on her lower back. I will place him on a short course of prednisone 20 mg twice a day for 5 days and then once in the morning for another 5 days in hopes of further relieving inflammation in the lower back. Departure - Departure Time of Disposition: 09:14 Disposition: Home, Self-Care 01 Condition: Fair Clinical Impression: Acute exacerbation of chronic low back pain - Discharge Information *PRESCRIPTION DRUG MONITORING PROGRAM REVIEWED*: Not Applicable *COPY OF PRESCRIPTION DRUG MONITORING REPORT IN PATIENT LEO: Not Applicable Prescriptions: oxyCODONE HCl/Acetaminophen [Percocet 5-325 mg Tablet] 1 - 2 each PO Q4H PRN # 20 tablet PRN Reason: pain relief. predniSONE [Deltasone] 20 mg PO ASDIRECTED #15 tablet Referrals: Brittany Mosher MD [Primary Care Provider] - Forms: ED Department Discharge Additional Instructions: Evaluation the emergency room today in regards to acute exacerbation of chronic low back pain on the right side. There is a component of inflammation in the facet joints as well as in the sacroiliac joint in your right buttock and hip area. Treated with an intramuscular injection of Demerol and Phenergan to relieve acute pain and muscle spasm. Suggest a trial of Percocet tablets 5/325 mg for pain relief versus the Tonalea. Just prednisone 20 mg twice daily for 5 days then once in the morning for another 5 days to help relieve pain and inflammation in your lower back and right sacroiliac joint. First tablet was given in the ED Would be due at [facility]. - My Orders Last 24 Hours: My Active Orders 01/25/19 09:06 Meperidine [Demerol] 50 mg IM ONETIME ONE - Assessment/Plan Last 24 Hours: My Active Orders 01/25/19 09:06 Meperidine [Demerol] 50 mg IM ONETIME ONE
[2019-01-25] MEDS ORDERED: Promethazine 25 MG/ML SDV IM ONE (08:56)
[2019-01-25] MEDS ORDERED: HYDROmorphone 1 MG/ML Syringe IM ONE (08:56)
[2019-01-25] MEDS ORDERED: Meperidine PF 50 MG/ML Syringe IM ONE (09:06)
[2019-01-25] MEDS ORDERED: predniSONE 20 MG Tab PO ONE (09:20)
[2019-01-25] MEDS ORDERED: Meperidine 50 MG/ML Vial ONE (09:22)
== END 2019-01-25 09:48 | disposition home or self-care (01) ==
LOC: JD.ED 08:10
DX: M54.5 Low back pain (principal); G89.29 Other chronic pain; I25.10 Atherosclerotic heart disease of native coronary artery without angina pectoris; I10 Essential (primary) hypertension; J44.9 Chronic obstructive pulmonary disease, unspecified; F32.9 Major depressive disorder, single episode, unspecified; Z88.5 Allergy status to narcotic agent; Z87.891 Personal history of nicotine dependence; Z88.7 Allergy status to serum and vaccine; Z79.899 Other long term (current) drug therapy; Z79.82 Long term (current) use of aspirin
CPT/HCPCS: 96372; 99283; J2175; J2550

== ENCOUNTER 2020-02-20 19:50 | Emergency (ER) | payer MEDICARE ==
[2020-02-20] MEDS ORDERED: LORazepam 2 MG/ML SDV IVPUSH ONE (20:07)
--- NOTE | 2020-02-20 20:08 | EDM.PDOC ---
ED HPI GENERAL MEDICAL PROBLEM - General Chief Complaint: Neurological Problem Stated Complaint: FACIAL SAGGING CANT DRINK Time Seen by Provider: 02/20/20 19:56 Source of Information: Reports: Patient History Limitations: Reports: No Limitations - History of Present Illness INITIAL COMMENTS - FREE TEXT/NARRATIVE: This is a 80-year-old female. She states that she has been having right eye problems over the last couple of days where she cannot seem to close her right eye very well and has been draining and feeling there is acid in her eye. This morning around 10 AM she noted that she had some right facial drooping and because the facial drooping has not improved and her eye continues to bother her she comes to the ER this evening at 8 PM. She uses a walker at home and she has had no difficulty getting around using her arms or her legs. She has never had this drooping of her face before. She denies any recent illnesses though she complains of some skin eruptions on her right cheek. She has had cervical spinal surgery and she is also a severe COPD. Denies any difficulty in getting around her house today with her walker. Generalized Pain Score (Numeric/FACES): 8 - Related Data Allergies Allergy/AdvReac Type Severity Reaction Status Date / Time hydromorphone HCl Allergy Severe Difficulty Verified 02/20/20 20:33 [From Dilaudid] Breathing NSAIDS (Non-Steroidal Allergy Severe Nausea and Verified 02/20/20 20:33 Anti-Inflamma Vomiting Tetanus Vaccines and Toxoid Allergy Severe Cannot Verified 02/20/20 20:33 [Tetanus Vaccines & Toxoid] Remember Home Meds: Home Meds Furosemide [Lasix] 20 mg PO DAILY 07/09/14 [History] Albuterol [Proair HFA] 2 puff INH TID 01/12/15 [History] Budesonide/Formoterol [Symbicort 160-4.5 MCG] 2 puff INH BID 04/09/17 [History] Diclofenac Sodium [Voltaren 1% Gel] 2 - 4 gm TOP TID PRN 04/09/17 [History] Docusate Sodium [Colace] 200 mg PO BEDTIME 04/09/17 [History] Lisinopril 10 mg PO DAILY 04/09/17 [History] Omeprazole 20 mg PO DAILY 04/09/17 [History] Polyethylene Glycol 3350 [MiraLAX] 1 dose PO DAILY PRN 04/09/17 [History] Vit A/C/E AC/Znox/Cupric Oxide [Eye Vitamin-Minerals Tablet] 1 tab PO DAILY [History] Acetaminophen [Tylenol Arthritis] 650 mg PO Q6H PRN 04/26/17 [History] Aspirin [Lo-Dose Aspirin EC] 81 mg PO DAILY 04/26/17 [History] Hydrocodone/Acetaminophen [[place] 10-325 Tablet] 1 each PO Q4H PRN #20 tablet [Rx] predniSONE [Prednisone] 40 mg PO QAM #5 tablet 02/20/20 [Rx] valACYclovir HCl [Valtrex] 500 mg PO BID #10 tablet 02/20/20 [Rx] Past Medical History HEENT History: Reports: Impaired Vision, Other (See Below) Other HEENT History: wears glasses and dentures Cardiovascular History: Reports: CAD, Hypertension, Other (See Below) Other Cardiovascular History: heart cath, bradycardia Respiratory History: Reports: Asthma, COPD Other Respiratory History: lung nodules Gastrointestinal History: Reports: Chronic Constipation, Diverticulosis, GERD, Hiatal Hernia, Other (See Below) Other Gastrointestinal History: dysphagia, bloating, hiatal hernia Genitourinary History: Reports: Other (See Below) Other Genitourinary History: hematuria 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 (See Below) Other CEILING INSTALLER History: cystocele and rectocele repair Musculoskeletal History: Reports: Arthritis, Neck Pain, Chronic, Other (See Below) Other Musculoskeletal History: sciatica Neurological History: Reports: None Psychiatric History: Reports: Depression Endocrine/Metabolic History: Reports: Obesity/BMI 30+, Other (See Below) Other Endocrine/Metabolic History: Hyperglycemia Hematologic History: Reports: None Immunologic History: Reports: None Oncologic (Cancer) History: Reports: None Dermatologic History: Reports: Eczema - Infectious Disease History Infectious Disease History: Reports: None - Past Surgical History HEENT Surgical History: Reports: Naso-Sinus Surgery GI Surgical History: Reports: Cholecystectomy, Colonoscopy, Hernia Repair/Other Female Surgical History: Reports: Hysterectomy Musculoskeletal Surgical History: Reports: Knee Replacement, Other (See Below) Other Musculoskeletal Surgeries/Procedures:: R total knee replacement, back fusion on C5-C6 Social & Family History - Caffeine Use Caffeine Use: Reports: Coffee - Living Situation & Occupation Living situation: Reports: Occupation: Employed ED ROS GENERAL - Review of Systems Review Of Systems: See Below Constitutional: Denies: Fever, Chills HEENT: Reports: Eye Discharge, Eye Pain, Other (Right Facial drooping) Respiratory: Reports: Shortness of Breath, Other (COPD). Denies: Wheezing, Cough Cardiovascular: Reports: No Symptoms Endocrine: Reports: No Symptoms GI/Abdominal: Denies: Abdominal Pain : Reports: No Symptoms Musculoskeletal: Reports: Neck Pain Skin: Reports: Rash Neurological: Reports: Other (right facial drooping) Psychiatric: Reports: No Symptoms Hematologic/Lymphatic: Reports: No Symptoms ED EXAM, NEURO - Physical Exam Exam: See Below Exam Limited By: No Limitations General Appearance: Alert, WD/WN, Anxious Eye Exam: Right Eye: Conjunctival Injection, Vision Changes (Blurring from watery eyes), Bilateral Eye: Other (Her right eye she is not able to close the eyelids, is inflamed and irritated and watering, she says her vision is okay except it is blurry from the watering) Ears: Normal External Exam, Normal Canal, Normal TMs Nose: Normal Inspection Throat/Mouth: Normal Voice, No Airway Compromise, Other (She has right facial drooping noted, she is not able to show her teeth on that right side though she is on the left, she also has a slight folliculitis on that right cheek as well) Head Exam: Normocephalic, Other Neck: Normal Inspection, Other (Needs of tenderness where she had the surgery and she apparently has some rods) Respiratory/Chest: No Respiratory Distress, Lungs Clear, Normal Breath Sounds Cardiovascular: Regular Rate, Rhythm, No Murmur GI/Abdominal: Soft, Non-Tender Neurological: Alert, Normal Mood/Affect, Oriented x 3, Difficulty Walking, Other (She normally walks with a walker and that has not changed he has full function of her upper and lower extremities including, including equal accounts payable accountant strength, no pronator drift, equal strength in leg raising in the lower extremities, and neurovascular is grossly intact in all 10 digits) Back Exam: Decreased Range of Motion Extremities: Limited Range of Motion, Other (He has limited range of motion of her lower extremities with some peripheral edema noted bilaterally) Psychiatric: Normal Affect, Anxious Skin Exam: Warm, Dry EKG INTERPRETATION EKG Date: 02/20/20 Time: 20:25 EKG Interpretation Comments: EKG shows a normal sinus rhythm with no acute ST or T wave changes there is a slight suggestion she might of had an old inferior CT in the past on EKG but there is no acute changes or ischemia noted. Course - Vital Signs Last Recorded V/S: Last Vital Signs Temp 98.2 F 02/20/20 20:00 Pulse 76 02/20/20 20:00 Resp 22 H 02/20/20 20:00 BP 156/85 H 02/20/20 20:00 Pulse Ox 95 02/20/20 20:00 - Orders/Labs/Meds Orders: Active Orders 24 hr Category Date Time Status Accu Check [Blood Glucose Check, Bedside] [] ONETIME Care 02/20/20 20:04 Active EKG 12 Lead [EKG Documentation Completion] [RC] STAT Care 02/20/20 20:04 Active Head wo Cont [CT] Stat Exams 02/20/20 20:03 Taken Labs: Laboratory Tests 02/20/20 02/20/20 02/20/20 Range/Units 20:00 20:00 20:00 WBC 8.67 (3.98-10.04) K/mm3 RBC 4.86 (3.98-5.22) M/mm3 Hgb 14.4 D (11.2-15.7) gm/dl Hct 45.2 H (34.1-44.9) % MCV 93.0 (79.4-94.8) fl MCH 29.6 (25.6-32.2) pg MCHC 31.9 L (32.2-35.5) g/dl RDW Std Deviation 46.6 H (36.4-46.3) fL Plt Count 251 D (182-369) K/mm3 MPV 10.0 (9.4-12.3) fl Neut % (Auto) 63.4 (34.0-71.1) % Lymph % (Auto) 25.1 (19.3-51.7) % [place] % (Auto) 8.3 (4.7-12.5) % Eos % (Auto) 2.8 (0.7-5.8) Baso % (Auto) 0.2 (0.1-1.2) % Neut # (Auto) 5.49 (1.56-6.13) K/mm3 Lymph # (Auto) 2.18 (1.18-3.74) K/mm3 [place] # (Auto) 0.72 H (0.24-0.36) K/mm3 Eos # (Auto) 0.24 (0.04-0.36) K/mm3 Baso # (Auto) 0.02 (0.01-0.08) K/mm3 PT 10.3 (9.7-12.0) SECONDS INR 0.94 Sodium 148 H (136-145) mEq/L Potassium 3.6 (3.5-5.1) mEq/L Chloride 109 H (98-107) mEq/L Carbon Dioxide 29 (21-32) mEq/L Anion Gap 13.6 (5-15) BUN 19 H (7-18) mg/dL Creatinine 1.1 H (0.55-1.02) mg/dL Est Cr Clr Drug Dosing 33.34 mL/min Estimated GFR (MDRD) 48 (>60) mL/min BUN/Creatinine Ratio 17.3 (14-18) Glucose 108 (83-115) mg/dL Calcium 9.8 (8.5-10.1) mg/dL Total Bilirubin 0.4 (0.2-1.0) mg/dL AST 12 L (15-37) U/L ALT 17 (14-59) U/L Alkaline Phosphatase 93 (46-116) U/L Total Protein 7.1 (6.4-8.2) g/dl Albumin 3.5 (3.4-5.0) g/dl Globulin 3.6 gm/dL Albumin/Globulin Ratio 1.0 (1-2) Meds: Medications Discontinued Medications Generic Name Dose Route Start Last Admin Trade Name Freq PRN Reason Stop Dose Admin Erythromycin 1 gm 02/20/20 21:08 02/20/20 21:15 Erythromycin 0.5% Ophth Oint EYERT 02/20/20 21:09 1 gm ONETIME ONE Administration Lorazepam 0.5 mg 02/20/20 20:07 02/20/20 20:15 Ativan IVPUSH 02/20/20 20:08 0.5 mg ONETIME ONE Administration Prednisone 40 mg 02/20/20 21:07 02/20/20 21:14 Prednisone PO 02/20/20 21:08 40 mg ONETIME ONE Administration Valacyclovir HCl 500 mg 02/20/20 21:05 02/20/20 21:14 Valtrex PO 02/20/20 21:06 500 mg ONETIME ONE Administration - Radiology Interpretation Free Text/Narrative:: CT scan of the head shows age-related atrophy and chronic white matter ischemic changes but no acute intracranial abnormalities no hemorrhage or mass-effect - Re-Assessments/Exams Free Text/Narrative Re-Assessment/Exam: 02/20/20 21:01 I spoke to this patient regarding the CT scan results that she was not having a stroke but this is a Mckinley's palsy. We are going to put her on some steroids and acyclovir since it is a rather severe one. I explained to her that I do not know if these will help but it is better than doing nothing. 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 I am concerned that she is not can be able to do this at home but I am going to talk to her daughter and let her daughter know what is going on. 02/20/20 21:11 I will speak to her daughter when they go out into the lobby to make certain that they know how to protect this eye. Departure - Departure Time of Disposition: 21:13 Disposition: Home, Self-Care 01 Condition: Fair Clinical Impression: Mckinley's palsy, Inflammation of right eye - Discharge Information *PRESCRIPTION DRUG MONITORING PROGRAM REVIEWED*: Not Applicable *COPY OF PRESCRIPTION DRUG MONITORING REPORT IN PATIENT LEO: Not Applicable Prescriptions: predniSONE [Prednisone] 40 mg PO QAM #5 tablet valACYclovir HCl [Valtrex] 500 mg PO BID #10 tablet Instructions: Mckinley Palsy, Adult Referrals: PCP,None [Primary Care Provider] - Forms: ED Department Discharge Additional Instructions: Take the prednisone faithfully for the next 5 days, take the Valtrex 500 twice daily for the next 7 days, follow-up with your family doctor this week for recheck THIS IS IMPORTANT, must use artificial tears in that right eye when it bothers you and DO NOT RUB the eye and at nighttime you must put drops in the eye and Taped It Shut otherwise the cornea will dry out and it will scar and you will lose your vision, again you must follow-up with your family doctor to make sure this begins to improve, return to the ER if needed Sepsis Event Note - Focused Exam Vital Signs: Vital Signs Temp Pulse Resp BP Pulse Ox 02/20/20 20:00 98.2 F 76 22 H 156/85 H 95 Date Exam was Performed: 02/20/20 Time Exam was Performed: 21:52 - My Orders Last 24 Hours: My Active Orders 02/20/20 20:03 Head wo Cont [CT] Stat 02/20/20 20:04 Accu Check [Blood Glucose Check, Bedside] [RC] ONETIME EKG 12 Lead [EKG Documentation Completion] [RC] STAT - Assessment/Plan Last 24 Hours: My Active Orders 02/20/20 20:03 Head wo Cont [CT] Stat 02/20/20 20:04 Accu Check [Blood Glucose Check, Bedside] [RC] ONETIME EKG 12 Lead [EKG Documentation Completion] [RC] STAT
[2020-02-20 20:32] VITALS: BP 156/85; PULSE 76
[2020-02-20] MEDS ORDERED: valACYclovir 500 MG Tab PO ONE (21:05)
[2020-02-20] MEDS ORDERED: predniSONE 20 MG Tab PO ONE (21:07)
[2020-02-20] MEDS ORDERED: Erythromycin Base 0.5% Ophth Oint 1 GM Tube EYERT ONE (21:08)
--- NOTE | 2020-02-21 14:03 | CT ---
Head CT Technique: Multiple axial sections through the brain were obtained. Intravenous contrast was not utilized. Comparison: No prior intracranial imaging is available. Findings: Ventricles along with basal cisterns and sulci over the convexities are moderately prominent. Minimal areas of diminished density are scattered within the periventricular white matter which is compatible with small vessel ischemic demyelination change. No other abnormal parenchymal densities are seen. No evidence of intracranial hemorrhage. No midline shift or mass-effect is appreciated. Bone window settings were reviewed. Visualized mastoid sinuses are clear. Minimal areas of mucosal thickening are seen within the ethmoid sinuses and small retention cyst within the right maxillary sinus is noted. No acute calvarial abnormality is appreciated. Impression: 1. Senescent change as noted above. 2. Minimal sinus findings believed to be chronic. 3. Nothing acute is appreciated on noncontrast head CT study. Note: Given patient's symptoms, consider MRI for further evaluation. Diagnostic code #2 This report was dictated in MDT I agree with preliminary report from [facility], finalized on 02/20/20, 9:44 PM Central Daylight Time
== END 2020-02-20 21:34 | disposition home or self-care (01) ==
LOC: JD.ED 19:50
DX: H57.89 Other specified disorders of eye and adnexa (principal); G51.0 Bell's palsy; I25.10 Atherosclerotic heart disease of native coronary artery without angina pectoris; I10 Essential (primary) hypertension; J44.9 Chronic obstructive pulmonary disease, unspecified; M19.90 Unspecified osteoarthritis, unspecified site; F32.9 Major depressive disorder, single episode, unspecified; E66.9 Obesity, unspecified; K21.9 Gastro-esophageal reflux disease without esophagitis; Z88.5 Allergy status to narcotic agent; Z88.8 Allergy status to other drugs, medicaments and biological substances; Z79.82 Long term (current) use of aspirin; Z79.899 Other long term (current) drug therapy; Z68.41 Body mass index [BMI] 40.0-44.9, adult
CPT/HCPCS: 36415; 70450; 80053; 82962; 85025; 85610; 93005; 96374; 99285; A9270; J2060; J7512; 93010; 99284

== ENCOUNTER 2020-10-16 15:59 | Emergency (ER) | payer MEDICARE ==
[2020-10-16 16:16] VITALS: BP 144/91; PULSE 87
--- NOTE | 2020-10-16 17:41 | EDM.PDOC ---
ED HPI GENERAL MEDICAL PROBLEM - General Chief Complaint: Back Pain or Injury Stated Complaint: BACK PAIN Time Seen by Provider: 10/16/20 16:17 Source of Information: Reports: Patient, RN Notes Reviewed History Limitations: Reports: No Limitations - History of Present Illness INITIAL COMMENTS - FREE TEXT/NARRATIVE: Patient is a 80-year-old female presenting to the emergency department with complaints of low back pain. This has been occurring for the last month. She has been using Grafton that she has prescribed for her knee pain and states that it has been helping. She tried calling her PCP, Dr. Mosher, on Saturday and was told that she is out of the office this week. Patient does have a history of spinal fusion in her lumbar spine done many years ago. She denies any falls or recent injuries. She denies any radiation of the pain down her legs or any bowel or or bladder dysfunction. Right Back Pain Score (Numeric/FACES): 9 - Related Data Allergies Allergy/AdvReac Type Severity Reaction Status Date / Time hydromorphone HCl Allergy Severe Difficulty Verified 10/16/20 16:16 [From Dilaudid] Breathing Tetanus Vaccines and Toxoid Allergy Mild Cannot Verified 10/16/20 16:16 [Tetanus Vaccines & Toxoid] Remember NSAIDS (Non-Steroidal AdvReac Mild Nausea and Verified 10/16/20 16:16 Anti-Inflamma Vomiting Home Meds: Home Meds Furosemide [Lasix] 20 mg PO DAILY 07/09/14 [History] Albuterol [Proair HFA] 2 puff INH TID 01/12/15 [History] Budesonide/Formoterol [Symbicort 160-4.5 MCG] 2 puff INH BID 04/09/17 [History] Diclofenac Sodium [Voltaren 1% Gel] 2 - 4 gm TOP TID PRN 04/09/17 [History] Docusate Sodium [Colace] 200 mg PO BEDTIME 04/09/17 [History] Lisinopril 10 mg PO DAILY 04/09/17 [History] Omeprazole 20 mg PO DAILY 04/09/17 [History] Polyethylene Glycol 3350 [MiraLAX] 1 dose PO DAILY PRN 04/09/17 [History] Vit A/C/E AC/Znox/Cupric Oxide [Eye Vitamin-Minerals Tablet] 1 tab PO DAILY 04/09/17 [History] Acetaminophen [Tylenol Arthritis] 650 mg PO Q6H PRN 04/26/17 [History] Aspirin [Lo-Dose Aspirin EC] 81 mg PO DAILY 04/26/17 [History] Hydrocodone/Acetaminophen [Grafton 10-325 Tablet] 1 each PO Q4H PRN #20 tablet 05/25/19 [Rx] predniSONE [Prednisone] 40 mg PO QAM #5 tablet 02/20/20 [Rx] valACYclovir HCl [Valtrex] 500 mg PO BID #10 tablet 02/20/20 [Rx] predniSONE [Prednisone] 20 mg PO ASDIRECTED 9 Days #13 tablet 10/16/20 [Rx] Past Medical History HEENT History: Reports: Impaired Vision, Other (See Below) Other HEENT History: wears glasses and dentures Cardiovascular History: Reports: CAD, Hypertension, Other (See Below) Other Cardiovascular History: heart cath, bradycardia Respiratory History: Reports: Asthma, COPD Other Respiratory History: lung nodules Gastrointestinal History: Reports: Chronic Constipation, Diverticulosis, GERD, Hiatal Hernia, Other (See Below) Other Gastrointestinal History: dysphagia, bloating, hiatal hernia Genitourinary History: Reports: Other (See Below) Other Genitourinary History: hematuria [employer] History: Reports: Other (See Below) Other [employer] History: cystocele and rectocele repair Musculoskeletal History: Reports: Arthritis, Neck Pain, Chronic, Other (See Below) Other Musculoskeletal History: sciatica Neurological History: Reports: None Psychiatric History: Reports: Depression Endocrine/Metabolic History: Reports: Obesity/BMI 30+, Other (See Below) Other Endocrine/Metabolic History: Hyperglycemia Hematologic History: Reports: None Immunologic History: Reports: None Oncologic (Cancer) History: Reports: None Dermatologic History: Reports: Eczema - Infectious Disease History Infectious Disease History: Reports: None - Past Surgical History HEENT Surgical History: Reports: Naso-Sinus Surgery GI Surgical History: Reports: Cholecystectomy, Colonoscopy, Hernia Repair/Other Female Surgical History: Reports: Hysterectomy Musculoskeletal Surgical History: Reports: Knee Replacement, Other (See Below) Other Musculoskeletal Surgeries/Procedures:: R total knee replacement, back fusion on C5-C6 Social & Family History - Family History Family Medical History: No Pertinent Family History - Caffeine Use Caffeine Use: Reports: Coffee - Living Situation & Occupation Living situation: Reports: Occupation: Employed ED ROS GENERAL - Review of Systems Review Of Systems: Comprehensive ROS is negative, except as noted in HPI. ED EXAM,LOWER BACK PAIN/INJURY - Physical Exam Exam: See Below Exam Limited By: No Limitations General Appearance: Alert, WD/WN, No Apparent Distress Respiratory/Chest: No Respiratory Distress, Lungs Clear, Normal Breath Sounds, No Accessory Muscle Use, Chest Non-Tender Cardiovascular: Normal Peripheral Pulses, Regular Rate, Rhythm, No Edema, No Gallop, No JVD, No Murmur, No Rub GI/Abdominal: Normal Bowel Sounds, Soft, Non-Tender, No Organomegaly, No Distention, No Abnormal Bruit, No Mass Back Exam: Normal Inspection, Other (Tenderness to palpation over the L1-L5 vertebrae. Tenderness palpation over the paraspinous muscles on the right lateral aspect from L1-L5.) Extremities: Normal Inspection, Normal Range of Motion, Non-Tender, No Pedal Edema, Normal Capillary Refill Neurological: Alert, Normal Mood/Affect, Normal Dorsiflexion, CN II-XII Intact, Normal Plantar Flexion, Normal Gait, Normal Reflexes, No Motor/Sensory Deficits, Oriented x 3 Course - Vital Signs Last Recorded V/S: Last Vital Signs Temp 97 F 10/16/20 16:13 Pulse 87 10/16/20 16:13 Resp 16 10/16/20 16:13 BP 144/91 H 10/16/20 16:13 Pulse Ox 92 L 10/16/20 16:13 - Orders/Labs/Meds Orders: Active Orders 24 hr Category Date Time Status Lumbar Spine 2 or 3V [CR] Stat Exams 10/16/20 16:17 Taken Meds: Medications Discontinued Medications Generic Name Dose Route Start Last Admin Trade Name Mireille PRN Reason Stop Dose Admin Prednisone 40 mg 10/16/20 17:43 10/16/20 17:50 Prednisone PO 10/16/20 17:44 40 mg ONETIME ONE Administration - Re-Assessments/Exams Free Text/Narrative Re-Assessment/Exam: Patient is a 80-year-old female presenting to the emergency department with complaints of low back pain for the last month. She has been using her Grafton for pain which she states does help, however it seems to be getting worse. I have ordered a lumbar spinal x-ray. 10/16/20 17:42 Lumbar x-ray visualized by myself and Dr. Neville. There is no acute abnormalities visible. Hardware appears to be in correct position. I will start patient on a course of prednisone. Recommend follow-up in the clinic with her PCP or another provider at the next visit. Discussed that MRI or physical therapy would likely be the next step, however she states that she is claustrophobic. Discharge instructions as document. Departure - Departure Time of Disposition: 19:05 Disposition: Home, Self-Care 01 Condition: Good Clinical Impression: Low back pain Qualifiers: Chronicity: acute Back pain laterality: right Sciatica presence: without sciatica Qualified Code(s): M54.5 - Low back pain - Discharge Information *PRESCRIPTION DRUG MONITORING PROGRAM REVIEWED*: No *COPY OF PRESCRIPTION DRUG MONITORING REPORT IN PATIENT LEO: No Prescriptions: predniSONE [Prednisone] 20 mg PO ASDIRECTED 9 Days #13 tablet Instructions: Acute Back Pain, Adult Referrals: Brittany Mosher MD [Primary Care Provider] - Forms: ED Department Discharge Additional Instructions: You were seen in the emergency department today for low back pain over the course of the last month. Lumbar x-rays were completed and showed no acute abnormalities. Take this medication as prescribed. Recommend scheduling follow-up appointment with your primary care provider or another clinic provider at the next available visit to discuss physical therapy versus MRI. Continue to use the pain medications you have at home as prescribed. Applying heat to your low back would also be beneficial. Return to ER for any new or worsening symptoms. Sepsis Event Note (ED) - Evaluation Sepsis Screening Result: No Definite Risk - Focused Exam Vital Signs: Vital Signs Temp Pulse Resp BP Pulse Ox 10/16/20 16:13 97 F 87 16 144/91 H 92 L - My Orders Last 24 Hours: My Active Orders 10/16/20 16:17 Lumbar Spine 2 or 3V [CR] Stat - Assessment/Plan Last 24 Hours: My Active Orders 10/16/20 16:17 Lumbar Spine 2 or 3V [CR] Stat
[2020-10-16] MEDS ORDERED: predniSONE 20 MG Tab PO ONE (17:43)
--- NOTE | 2020-10-17 10:25 | CR ---
Lumbar spine: AP and lateral views of the lumbar spine were obtained. Comparison: Prior lumbar spine study of 05/25/19. Findings: Trans-pedicle screws are seen with an L1-S1. These findings are stable from prior exam. Stable spondylolisthesis noted at L5-S1. There is severe disc space narrowing noted at T10-11 through T12-L1. Diffuse anterior osteophytes are seen. Vascular calcification is noted. Several surgical clips are seen within the right upper abdomen presumably from prior cholecystectomy. Impression: 1. Stable surgery within the lumbar spine from prior exam. 2. Other degenerative change as noted above. Diagnostic code #2
== END 2020-10-16 19:15 | disposition home or self-care (01) ==
LOC: JD.ED 15:59
DX: M54.5 Low back pain (principal); I25.10 Atherosclerotic heart disease of native coronary artery without angina pectoris; I10 Essential (primary) hypertension; J44.9 Chronic obstructive pulmonary disease, unspecified; K21.9 Gastro-esophageal reflux disease without esophagitis; M19.90 Unspecified osteoarthritis, unspecified site; E66.9 Obesity, unspecified; Z68.25 Body mass index [BMI] 25.0-25.9, adult; Z88.5 Allergy status to narcotic agent; Z88.7 Allergy status to serum and vaccine; Z88.6 Allergy status to analgesic agent; Z79.899 Other long term (current) drug therapy; Z79.82 Long term (current) use of aspirin
CPT/HCPCS: 72100; 99283; J7512

== ENCOUNTER 2022-05-29 17:04 | Emergency (ER) | payer MEDICARE, OTHER ==
[2022-05-29 17:51] VITALS: BP 151/93; PULSE 74
[2022-05-29] MEDS ORDERED: methylPREDNISolone Sodium Succinate 125 MG/2 ML SDV IVPUSH PRN (20:04)
[2022-05-29] MEDS ORDERED: EPINEPHrine 1 MG/ML SDV IM PRN (20:04)
[2022-05-29] MEDS ORDERED: Famotidine 20 MG/2 ML SDV IVPUSH PRN (20:04)
[2022-05-29] MEDS ORDERED: diphenhydrAMINE 50 MG/ML SDV IVPUSH PRN (20:04)
[2022-05-29] MEDS ORDERED: Sodium Chloride 0.9% 10 ML Syringe FLUSH SCH (20:15)
== END 2022-05-29 21:23 | disposition home or self-care (01) ==
LOC: JD.ED 17:04
DX: U07.1 COVID-19 (principal); I25.10 Atherosclerotic heart disease of native coronary artery without angina pectoris; J44.9 Chronic obstructive pulmonary disease, unspecified; K21.9 Gastro-esophageal reflux disease without esophagitis; I10 Essential (primary) hypertension; E66.9 Obesity, unspecified; Z68.41 Body mass index [BMI] 40.0-44.9, adult; Z88.6 Allergy status to analgesic agent; Z88.7 Allergy status to serum and vaccine; Z79.899 Other long term (current) drug therapy; Z90.49 Acquired absence of other specified parts of digestive tract; Z90.710 Acquired absence of both cervix and uterus; Z87.891 Personal history of nicotine dependence
CPT/HCPCS: 36415; 80048; 99284; M0222; Q0222

== ENCOUNTER 2023-11-28 16:34 | Emergency (ER) | payer MEDICARE ==
[2023-11-28 20:39] VITALS: BP 125/75; PULSE 66
== END 2023-11-28 18:42 | disposition home or self-care (01) ==
LOC: JD.ED 16:34
DX: M79.89 Other specified soft tissue disorders (principal); M79.662 Pain in left lower leg; I10 Essential (primary) hypertension; I25.10 Atherosclerotic heart disease of native coronary artery without angina pectoris; J44.9 Chronic obstructive pulmonary disease, unspecified; K21.9 Gastro-esophageal reflux disease without esophagitis; E66.9 Obesity, unspecified; Z79.82 Long term (current) use of aspirin; Z79.899 Other long term (current) drug therapy; Z88.5 Allergy status to narcotic agent; Z88.6 Allergy status to analgesic agent; Z88.7 Allergy status to serum and vaccine; Z68.33 Body mass index [BMI] 33.0-33.9, adult
CPT/HCPCS: 93971-26-LT; 93971-LT; 99283